=== PATIENT | male | born 1965 | race Caucasian/White ===

== ENCOUNTER 2023-01-01 12:20 | Emergency (ER) | payer OTHER, SELFPAY ==
--- NOTE | ~2023-01-01 | US_ITS ---
EXAMINATION: US scrotum doppler DATE: 01/01/2023 14:34 INDICATION: Left testicular pain and swelling TECHNIQUE: Testicular sonogram utilizing grayscale and Doppler COMPARISON: None. FINDINGS: The right testis measures 3.2 x 1.4 x 2.2 cm. The left testis measures 4.1 x 2.6 x 2.4 cm. Symmetric normal grayscale appearance to both testes. Asymmetric mild diffuse enlargement of the left epididymi s relative to the right. There is also asymmetric diffuse increased vascularity throughout the left t estis and epididymis relative to the right consistent with left-sided epididymoorchitis. The left epi didymis is normal with normal vascular flow. There is no varicocele. Small to moderate-sized complex left hydrocele with multiple thin echogenic internal septations. IMPRESSION: 1. Left epididymoorchitis with small to moderate-sized complex left hydrocele. Reviewed, dictated and finalized at location A.
[2023-01-01 12:22] VITALS: BP 150/91; PULSE 108; RESP 22; TEMP 36.7; O2SAT 100
--- NOTE | 2023-01-01 12:45 | ED.MALEGU ---
HPI - Male Genitourinary General Chief complaint: Urogenital-Male Stated complaint: UTI Time Seen by Provider: 01/01/23 12:26 History of Present Illness HPI Narrative: Patient is a 57-year-old male who presents ER with left-sided testicular pain. Ongoing for 2 weeks. Associated with increased swelling and tenderness to the area. No fevers chills or sweats. Reports he had similar symptoms several years ago and it was related to a UTI. He has had no dysuria or urinary frequency/urgency. No abdominal discomfort. No issues with defecation. No additional concerns. Denies concerns for sexual transmitted infection. Related Data Allergies Allergy/AdvReac Type Severity Reaction Status Date / Time No Known Allergies Allergy Verified 01/01/23 12:34 Review of Systems Review of Systems: All systems reviewed & are unremarkable except as noted in HPI and below Constitutional: Constitutional: Denies chills, Denies fatigue and Denies fever(s) Gastrointestinal: Gastrointestinal: Denies abdominal pain, Denies nausea and Denies vomiting Genitourinary: Genitourinary: Denies oliguria, Denies dysuria, Denies penile discharge and Reports testicular pain PMFSH Past Medical History Medical History (Updated 01/01/23 @ 16:08 by Talon Acevedo MD) Coronary artery disease Hyperlipidemia Hypertension Peripheral arterial disease Surgical History Surgical History (Updated 01/01/23 @ 15:42 by Talon Acevedo MD) History of percutaneous coronary intervention Social History Social History (Updated 01/01/23 @ 15:42 by Talon Acevedo MD) Smoking status: Current every day smoker Exam Narrative: GENERAL: Well-appearing, well-nourished, and in no acute distress. HEAD: Normocephalic, atraumatic. CHEST: Clear to auscultation. No respiratory distress. HEART: Regular rate and rhythm. Normal peripheral pulses. ABDOMEN: Soft, nontender, nondistended. : Left-sided testicular swelling epididymal swelling with associated tenderness. Normal right testicle and epididymis. Ultrasound normal and no urethral discharge. EXTREMITIES: Normal range of motion. No edema. SKIN: Warm, dry, no rash. NEURO: Alert and oriented x3. PSYCH: Normal mood and affect. Course Vital Signs Vital signs: Vital Signs Temperature 98.0 F 01/01/23 12:22 Pulse Rate 108 H 01/01/23 12:22 Respiratory Rate 22 H 01/01/23 12:22 Blood Pressure 150/91 H 01/01/23 12:22 Pulse Oximetry 100 01/01/23 12:22 Oxygen Delivery Room Air 01/01/23 12:22 Temperature 98.0 F 01/01/23 12:22 Pulse Rate 108 H 01/01/23 12:22 Respiratory Rate 22 H 01/01/23 12:22 Blood Pressure 150/91 H 01/01/23 12:22 Pulse Oximetry 100 01/01/23 12:22 Oxygen Delivery Room Air 01/01/23 12:22 MDM - Male Genitourinary MDM Narrative Medical decision making narrative: -Presentation: 57-year-old male presenting to the ER with testicular pain and swelling. -DDX includes but is not limited to: Epididymitis, orchitis, cyst to transmit infection was a -Co-morbidities complicating care: Vascular disease, CAD. -Social determinants of health: None -External Chart Review: None -Hx from independent Sources: Patient -Independent interpretation of studies: Elevated white blood cell count 13,200, normal renal function and electrolytes. Urinalysis with significant infection given elevated white blood cells with 1-50, 1+ leukocyte esterase, and 4+ bacteria. Ultrasound with left-sided epididymitis/orchitis. -Discussion of Management/Consultants: Dr. Pereira, urology. -Dx tests considered but not ordered: none -Procedures: none -Interventions: Scrotal ultrasound and oral Dubois. -Shared decision making / Disposition: Discussed need for follow-up with urology as well as treat with oral antibiotics. Patient verbalized understanding. Discussed return precautions. -RX: Ciprofloxacin 500 mg 1 tab p.o. twice daily x14 days. Dubois 5/325 mg 1 tab p.o. ev
[2023-01-01] MEDS: HYDROcodone/acetaminophen (*CRX) 5-325 MG TABLET 1 TAB PO (13:10)
[2023-01-01 13:19] LABS: Basophils Percent Auto 0.2 % (0.2-1.2); Eosinophils Percent Auto 0.2 % (0-4.4); Hematocrit 46.3 % (42.0-52.0); Hemoglobin 15.7 g/dL (14.0-18.0); Immature Granulocyte Absolute 0.05 K/mm3 (0.00-0.031); Immature Granulocyte Percent A 0.4 % (0-0.5); Lymphocytes Absolute Auto 0.99 K/mm3 (0.9-3.2); Lymphocytes Percent Auto 7.5 % (18.3-44.2); Mean Corpuscular HGB Conc 33.9 g/dl (32-36); Mean Corpuscular Hemoglobin 34.5 pg (26-34); Mean Corpuscular Volume 101.8 fl (80-100); Mean Platelet Volume 9.7 fl (7.4-10.4); Monocytes Percent Auto 7.3 % (2.6-8.5); Neutrophils Absolute Auto 11.1 K/mm3 (1.3-6.7); Neutrophils Percent Auto 84.4 % (45.5-73.1); Platelet Count Result 214 k/mm3 (150-375); Red Blood Count 4.55 M/mm3 (4.6-6.20); Red Cell Distribution Width 13.7 % (11.5-14.5); White Blood Count 13.2 K/mm3 (4.5-10.0)
[2023-01-01 13:23] LABS: Appearance Urine Clear (Clear); Bacteria Urine 4+ /hpf; Bilirubin Urine Negative (Negative); Blood Urine 1+ (Negative); Color Urine Yellow (Yellow); Glucose Urine UA Negative (Negative); Ketones Urine Negative (Negative); Leukocyte Esterase Ur 1+ LEU/UL (Negative); Nitrate Urine Positive (Negative); Protein Urine 2+ mg/dL (Negative); RBC Urine 0-2 /hpf (0-2); Specific Grav Ur 1.018 (1.001-1.035); Squamous Epithelial Cell Urine None seen /hpf (Few); WBC Urine 21-50 /hpf; pH Urine 5.5 (5.0-9.0)
[2023-01-01 13:29] LABS: Alanine Aminotransferase 17 U/L (6-50); Albumin Level 4.6 g/dL (3.5-5.1); Alkaline Phosphatase 98 U/L (38-126); Anion Gap 8 mmol/L (8-16); Aspartate Amino Transferase 22 U/L (17-59); Bilirubin,Total 1.2 mg/dL (0.2-1.3); Blood Urea Nitrogen 12 mg/dL (9-20); Calcium 9.5 mg/dL (8.4-10.2); Carbon Dioxide 26 mmol/L (22-30); Chloride 98 mmol/L (98-107); Estimated CRCL calculation 60 ml/min; Estimated Glomerular Filt Rate > 60; Glucose 123 mg/dL (65-110); Sodium 132 mmol/L (137-145)
[2023-01-01 13:38] LABS: Add Urine Microscopic? YES
== END 2023-01-01 14:15 | disposition home or self-care (01) ==
PROVIDERS: Emergency Provider Emergency Medicine
DX: N45.3 Epididymo-orchitis (principal); I25.10 Atherosclerotic heart disease of native coronary artery without angina pectoris; E78.5 Hyperlipidemia, unspecified; I10 Essential (primary) hypertension; F17.200 Nicotine dependence, unspecified, uncomplicated
CPT/HCPCS: 36415; 76870; 80053; 81001; 85025; 87077; 87086; 87186; 93976; 99284; A9270